=== PATIENT | male | born 1945 | race Caucasian/White ===

== ENCOUNTER 2016-10-20 07:35 | Inpatient (IN) | payer OTHER ==
[~2016-10-20] VITALS: Ht 175.3 cm; Wt 86.8 kg
[~2016-10-20 07:35] MED LIST: ALER-CAP25 M1 PO; AMLODIPINE BESYL5 MG PO; ASPIR-LOW81 MG PO; AUGMENTIN875 MG PO; BACTRIM,SEPT1 TABLET PO; CARVEDILOL12.5 MG PO; CEPHALEXIN500 MG PO; COZAAR100 MG PO; DELTASONE10 MG PO; LAMICTAL150 M1 PO; LAMICTAL150 MG PO; PHENOBARBITAL60 MG PO; PHENOBARBITAL64.8 MG PO; PRAVASTATIN SOD40 MG PO; Phenobarbital PO; SODIUM CHLORIDE1 G1 PO; Tylenol Regular Stre PO; UNABLEOBTAIN
[2016-10-20 08:44] LABS: HEMATOCRIT 36.8 % (38.0-50.0); MCH 31.5 PG (29.0-34.0); MCHC 35.1 G/DL (30.0-36.0); MEAN PLAT.VOLUME 8.5 uM^3 (9.0-12.4); PLATELET COUNT 260 K/uL (156-360); RBC DIS.WIDTH-CV 12.1 % (11.8-14.6); RBC DIS.WIDTH-SD 39.8 % (39-53); RED BLOOD COUNT 4.09 M/uL (4.00-5.50); WHITE BLOOD COUNT 7.2 K/uL (4.1-10.2)
[2016-10-20 08:52] LABS: CHLORIDE 91 mEq/L (99-109); POTASSIUM 4.9 mEq/L (3.7-5.4); SODIUM 128 mEq/L (136-147)
[2016-10-20 08:54] LABS: GLUCOSE 105 mg/dL (70-99)
[2016-10-20 08:55] LABS: ANION GAP 9 MEQ/L (2-14)
[2016-10-20 08:56] LABS: TOTAL BILIRUBIN 0.4 mg/dL (0.0-1.0)
[2016-10-20 08:57] LABS: ALKALINE PHOSPHATASE 173 IU/L (3-129)
[2016-10-20 08:58] LABS: GFR ESTIMATE (CALCULATED) > 59 mL/min/
[2016-10-20 08:59] LABS: UREA NITROGEN (BUN) 14 mg/dL (9-23)
[2016-10-20 09:09] LABS: PHENOBARBITAL 17.3 MCG/ML (15-40); SAMPLE HEMOLYSIS CHECK 0; SAMPLE ICTERIC CHECK 0; SAMPLE LIPEMIA CHECK 0
[2016-10-20 09:26] LABS: ADD MIUA? NO; BILIRUBIN NEGATIVE; BLOOD NEGATIVE; COLOR YELLOW ((YELLOW)); GLUCOSE (STRIP) NEGATIVE; KETONES NEGATIVE; LEUKOCYTES NEGATIVE; NITRITE NEGATIVE; PROTEIN (STRIP) NEGATIVE; SPECIFIC GRAVITY 1.015 (1.000-1.030); UCUL ADDED? NO
[2016-10-20 17:46] VITALS: BP 137/66
[2016-10-20 19:42] VITALS: BP 128/59
[2016-10-21 00:12] VITALS: BP 133/67
[2016-10-21 04:36] VITALS: BP 152/72
[2016-10-21 07:15] LABS: ANION GAP 8 MEQ/L (2-14); CHLORIDE 93 MEQ/L (99-109); GFR ESTIMATE (CALCULATED) > 59 mL/min/; GLUCOSE 102 mg/dL (70-99); POTASSIUM 4.4 MEQ/L (3.7-5.4); SAMPLE HEMOLYSIS CHECK 0; SAMPLE ICTERIC CHECK 0; SAMPLE LIPEMIA CHECK 0; SODIUM 126 MEQ/L (136-147); UREA NITROGEN (BUN) 12 mg/dL (9-23)
[2016-10-21 08:34] VITALS: BP 177/82
[2016-10-21 11:45] VITALS: BP 144/69
[2016-10-21 17:04] VITALS: BP 135/65
[2016-10-21 20:12] VITALS: BP 133/67
[2016-10-22 00:08] VITALS: BP 136/71
[2016-10-22 03:11] VITALS: BP 162/77
[2016-10-22 06:31] LABS: ANION GAP 10 MEQ/L (2-14); CHLORIDE 94 MEQ/L (99-109); GFR ESTIMATE (CALCULATED) > 59 mL/min/; GLUCOSE 95 mg/dL (70-99); POTASSIUM 4.5 MEQ/L (3.7-5.4); SAMPLE HEMOLYSIS CHECK 0; SAMPLE ICTERIC CHECK 0; SAMPLE LIPEMIA CHECK 0; SODIUM 128 MEQ/L (136-147); UREA NITROGEN (BUN) 11 mg/dL (9-23)
[2016-10-22 07:21] VITALS: BP 184/86
[2016-10-22 08:39] LABS: INTER. NORMALIZED RATIO 1.1; PROTHROMBIN TIME 12.6 SEC (10.2-12.9)
[2016-10-22 10:56] VITALS: BP 132/62
[2016-10-22 15:16] VITALS: BP 147/65
[2016-10-22 18:52] VITALS: BP 131/61
[2016-10-23] VITALS (9 sets, daily range): BP systolic 82–174; BP diastolic 50–79
[2016-10-23 08:24] LABS: ANION GAP 8 MEQ/L (2-14); CHLORIDE 92 MEQ/L (99-109); GFR ESTIMATE (CALCULATED) > 59 mL/min/; GLUCOSE 93 mg/dL (70-99); POTASSIUM 4.4 MEQ/L (3.7-5.4); SAMPLE HEMOLYSIS CHECK 0; SAMPLE ICTERIC CHECK 0; SAMPLE LIPEMIA CHECK 0; SODIUM 126 MEQ/L (136-147); UREA NITROGEN (BUN) 10 mg/dL (9-23)
[2016-10-23 16:46] LABS: ANION GAP 7 MEQ/L (2-14); CHLORIDE 90 MEQ/L (99-109); GFR ESTIMATE (CALCULATED) > 59 mL/min/; GLUCOSE 92 mg/dL (70-99); POTASSIUM 4.2 MEQ/L (3.7-5.4); SAMPLE HEMOLYSIS CHECK 0; SAMPLE ICTERIC CHECK 0; SAMPLE LIPEMIA CHECK 0; SODIUM 124 MEQ/L (136-147); UREA NITROGEN (BUN) 14 mg/dL (9-23)
[2016-10-24 04:33] VITALS: BP 140/70
[2016-10-24 06:30] LABS: HEMATOCRIT 33.6 % (38.0-50.0); MCH 30.3 PG (29.0-34.0); MCHC 33.3 G/DL (30.0-36.0); MCV 90.8 FL (86-99); MEAN PLAT.VOLUME 8.8 uM^3 (9.0-12.4); PLATELET COUNT 238 K/uL (156-360); RBC DIS.WIDTH-CV 12.2 % (11.8-14.6); RBC DIS.WIDTH-SD 40.9 % (39-53); WHITE BLOOD COUNT 7.1 K/uL (4.1-10.2)
[2016-10-24 06:59] LABS: ANION GAP 6 MEQ/L (2-14); CHLORIDE 92 MEQ/L (99-109); GFR ESTIMATE (CALCULATED) > 59 mL/min/; GLUCOSE 98 mg/dL (70-99); POTASSIUM 4.8 MEQ/L (3.7-5.4); SAMPLE HEMOLYSIS CHECK 0; SAMPLE ICTERIC CHECK 0; SAMPLE LIPEMIA CHECK 0; SODIUM 126 MEQ/L (136-147); UREA NITROGEN (BUN) 15 mg/dL (9-23)
[2016-10-24 07:54] VITALS: BP 149/72
[2016-10-24 11:09] VITALS: BP 112/56
[2016-10-24 16:01] VITALS: BP 132/63
[2016-10-24 19:39] VITALS: BP 136/63
[2016-10-24 23:20] VITALS: BP 149/70
[2016-10-25 03:57] VITALS: BP 135/71
[2016-10-25 07:05] VITALS: BP 174/85
[2016-10-25 07:08] LABS: ANION GAP 6 MEQ/L (2-14); CHLORIDE 92 MEQ/L (99-109); GFR ESTIMATE (CALCULATED) > 59 mL/min/; GLUCOSE 93 mg/dL (70-99); POTASSIUM 4.9 MEQ/L (3.7-5.4); SAMPLE HEMOLYSIS CHECK 0; SAMPLE ICTERIC CHECK 0; SAMPLE LIPEMIA CHECK 0; SODIUM 126 MEQ/L (136-147); UREA NITROGEN (BUN) 16 mg/dL (9-23)
[2016-10-25 11:14] VITALS: BP 95/52
[2016-10-25 15:08] VITALS: BP 105/52
[2016-10-25 16:29] LABS: ANION GAP 8 MEQ/L (2-14); CHLORIDE 91 MEQ/L (99-109); GFR ESTIMATE (CALCULATED) > 59 mL/min/; GLUCOSE 99 mg/dL (70-99); POTASSIUM 4.5 MEQ/L (3.7-5.4); SAMPLE HEMOLYSIS CHECK 0; SAMPLE ICTERIC CHECK 0; SAMPLE LIPEMIA CHECK 0; SODIUM 126 MEQ/L (136-147); UREA NITROGEN (BUN) 21 mg/dL (9-23)
[2016-10-25 19:18] VITALS: BP 135/60
[2016-10-25 22:09] LABS: CHLORIDE 95 mEq/L (99-109); POTASSIUM 4.4 mEq/L (3.7-5.4); SODIUM 130 mEq/L (136-147)
[2016-10-25 22:11] LABS: GLUCOSE 103 mg/dL (70-99)
[2016-10-25 22:12] LABS: ANION GAP 8 MEQ/L (2-14)
[2016-10-25 22:15] LABS: GFR ESTIMATE (CALCULATED) > 59 mL/min/
[2016-10-25 22:16] LABS: UREA NITROGEN (BUN) 21 mg/dL (9-23)
[2016-10-25 23:47] VITALS: BP 124/60
[2016-10-26] VITALS (7 sets, daily range): BP systolic 91–175; BP diastolic 52–78
[2016-10-26 06:30] LABS: ANION GAP 6 MEQ/L (2-14); CHLORIDE 96 MEQ/L (99-109); GFR ESTIMATE (CALCULATED) > 59 mL/min/; GLUCOSE 100 mg/dL (70-99); POTASSIUM 4.6 MEQ/L (3.7-5.4); SAMPLE HEMOLYSIS CHECK 0; SAMPLE ICTERIC CHECK 0; SAMPLE LIPEMIA CHECK 0; SODIUM 130 MEQ/L (136-147); UREA NITROGEN (BUN) 19 mg/dL (9-23)
[2016-10-26] MEDS ORDERED: FUROSEMIDE20 MG PO (10:26)
[2016-10-26] MEDS ORDERED: SODIUM CHLORIDE1 G1 PO (10:26)
[2016-10-27 04:38] VITALS: BP 163/77
[2016-10-27 07:11] LABS: GLUCOSE 95 mg/dL (70-99)
[2016-10-27 07:12] LABS: ANION GAP 6 MEQ/L (2-14); CHLORIDE 94 MEQ/L (99-109); GFR ESTIMATE (CALCULATED) > 59 mL/min/; POTASSIUM 4.2 MEQ/L (3.7-5.4); SAMPLE HEMOLYSIS CHECK 0; SAMPLE ICTERIC CHECK 0; SAMPLE LIPEMIA CHECK 0; SODIUM 129 MEQ/L (136-147); UREA NITROGEN (BUN) 18 mg/dL (9-23)
[2016-10-27 07:52] VITALS: BP 168/79
[2016-10-27] MEDS ORDERED: LASIX20 MG PO (10:54)
== END 2016-10-27 11:28 | DRG 643 ==
LOC: EME 07:35 → ENRESERV 12:54 → 3EAST 12:58 → EDOF 12:58 → ENRESERV 15:07 → 3EAST 17:31
PROVIDERS: Emergency Medicine; Internal Medicine; Physician Assistant
DX: E22.2 Syndrome of inappropriate secretion of antidiuretic hormone (principal); G93.40 Encephalopathy, unspecified; E86.0 Dehydration; I10 Essential (primary) hypertension; G40.909 Epilepsy, unspecified, not intractable, without status epilepticus; I73.9 Peripheral vascular disease, unspecified; M19.90 Unspecified osteoarthritis, unspecified site; G43.909 Migraine, unspecified, not intractable, without status migrainosus; Z87.440 Personal history of urinary (tract) infections; Z79.82 Long term (current) use of aspirin; Z79.899 Other long term (current) drug therapy; Z86.73 Personal history of transient ischemic attack (TIA), and cerebral infarction without residual deficits; Z80.0 Family history of malignant neoplasm of digestive organs
CPT/HCPCS: 70450; 70551; 71010; 76705; 80048; 80048 91; 80053; 80175 90; 80184; 81003; 82140; 82607; 82746; 83930; 83935; 84300; 85027; 85610; 85730; 95819; 96125 GN; 97530 GO; 97530 GP; 99281; 99285; J1650; J7030; J7040

== ENCOUNTER 2016-10-26 08:49 | Inpatient (IN) | payer OTHER ==
[~2016-10-26] VITALS: Ht 177.8 cm; Wt 84.9 kg
[2016-10-26] MEDS ORDERED: FUROSEMIDE20 MG PO (10:26)
[2016-10-26] MEDS ORDERED: SODIUM CHLORIDE1 G1 PO (10:26)
[2016-10-27] MEDS ORDERED: LASIX20 MG PO (10:54)
[2016-10-27 11:35] VITALS: BP 127/60
[2016-10-27 15:35] VITALS: BP 171/78
[2016-10-27 18:33] VITALS: BP 142/65
[2016-10-28 04:45] VITALS: BP 153/75
[2016-10-28 04:48] VITALS: BP 122/67
[2016-10-28 06:54] LABS: HEMATOCRIT 31.9 % (38.0-50.0); MCH 31.9 PG (29.0-34.0); MCHC 34.2 G/DL (30.0-36.0); MCV 93.3 FL (86-99); MEAN PLAT.VOLUME 8.6 uM^3 (9.0-12.4); PLATELET COUNT 234 K/uL (156-360); RBC DIS.WIDTH-CV 12.5 % (11.8-14.6); RBC DIS.WIDTH-SD 42.8 % (39-53); RED BLOOD COUNT 3.42 M/uL (4.00-5.50); WHITE BLOOD COUNT 7.9 K/uL (4.1-10.2)
[2016-10-28 07:16] LABS: ALKALINE PHOSPHATASE 114 IU/L (3-129); ANION GAP 5 MEQ/L (2-14); CHLORIDE 95 MEQ/L (99-109); GFR ESTIMATE (CALCULATED) > 59 mL/min/; GLUCOSE 96 mg/dL (70-99); POTASSIUM 4.7 MEQ/L (3.7-5.4); SAMPLE HEMOLYSIS CHECK 0; SAMPLE ICTERIC CHECK 0; SAMPLE LIPEMIA CHECK 0; SODIUM 130 MEQ/L (136-147); TOTAL BILIRUBIN 0.3 MG/DL (0.0-1.0); UREA NITROGEN (BUN) 22 mg/dL (9-23)
[2016-10-28 15:21] VITALS: BP 119/573
[2016-10-29 04:56] VITALS: BP 120/60
[2016-10-29 15:14] VITALS: BP 106/56
[2016-10-30 05:38] VITALS: BP 162/88
[2016-10-30 07:21] LABS: ANION GAP 8 MEQ/L (2-14); CHLORIDE 94 MEQ/L (99-109); GFR ESTIMATE (CALCULATED) > 59 mL/min/; GLUCOSE 90 mg/dL (70-99); POTASSIUM 4.6 MEQ/L (3.7-5.4); SAMPLE HEMOLYSIS CHECK 0; SAMPLE ICTERIC CHECK 0; SAMPLE LIPEMIA CHECK 0; SODIUM 129 MEQ/L (136-147); UREA NITROGEN (BUN) 17 mg/dL (9-23)
[2016-10-30 15:07] VITALS: BP 116/56
[2016-10-31 04:58] VITALS: BP 119/67
[2016-10-31 15:00] VITALS: BP 130/60
[2016-11-01 06:30] VITALS: BP 142/63
[2016-11-01 15:15] VITALS: BP 108/53
[2016-11-02 05:57] VITALS: BP 137/63
[2016-11-02 15:34] VITALS: BP 123/61
[2016-11-03 05:37] VITALS: BP 151/78
[2016-11-03 15:15] VITALS: BP 154/65
[2016-11-04 05:06] VITALS: BP 142/70
[2016-11-04 06:35] LABS: ANION GAP 4 MEQ/L (2-14); CHLORIDE 94 MEQ/L (99-109); GFR ESTIMATE (CALCULATED) > 59 mL/min/; GLUCOSE 94 mg/dL (70-99); POTASSIUM 4.4 MEQ/L (3.7-5.4); SAMPLE HEMOLYSIS CHECK 0; SAMPLE ICTERIC CHECK 0; SAMPLE LIPEMIA CHECK 0; SODIUM 128 MEQ/L (136-147); UREA NITROGEN (BUN) 17 mg/dL (9-23)
[2016-11-04 08:35] LABS: URIC ACID 3.9 mg/dL (3.1-9.2)
[2016-11-04 15:00] VITALS: BP 117/58
[2016-11-05 05:11] VITALS: BP 169/77
[2016-11-05 05:49] LABS: HEMATOCRIT 32.1 % (38.0-50.0); MCH 31.7 PG (29.0-34.0); MCHC 34.6 G/DL (30.0-36.0); MCV 91.7 FL (86-99); MEAN PLAT.VOLUME 8.6 uM^3 (9.0-12.4); PLATELET COUNT 244 K/uL (156-360); RBC DIS.WIDTH-CV 12.4 % (11.8-14.6); RBC DIS.WIDTH-SD 41.1 % (39-53); WHITE BLOOD COUNT 6.1 K/uL (4.1-10.2)
[2016-11-05 06:21] LABS: ALKALINE PHOSPHATASE 129 IU/L (3-129); ANION GAP 6 MEQ/L (2-14); CHLORIDE 95 MEQ/L (99-109); GFR ESTIMATE (CALCULATED) > 59 mL/min/; GLUCOSE 95 mg/dL (70-99); POTASSIUM 4.6 MEQ/L (3.7-5.4); SAMPLE HEMOLYSIS CHECK 0; SAMPLE ICTERIC CHECK 0; SAMPLE LIPEMIA CHECK 0; SODIUM 131 MEQ/L (136-147); TOTAL BILIRUBIN 0.3 MG/DL (0.0-1.0); UREA NITROGEN (BUN) 16 mg/dL (9-23)
[2016-11-05 16:03] VITALS: BP 113/59
[2016-11-05] MEDS ORDERED: SODIUM CHLORIDE1 G1 PO (19:37)
[2016-11-05] MEDS ORDERED: CEPHALEXIN500 MG PO (19:37)
[2016-11-05] MEDS ORDERED: LOSARTAN POTASS50 MG PO (19:37)
[2016-11-05] MEDS ORDERED: MUPIROCIN15 GM TP (19:37)
[2016-11-06 05:27] VITALS: BP 127/62
[2016-11-06 08:49] VITALS: BP 108/59
== END 2016-11-06 10:14 | DRG 71 ==
LOC: 3WEST 08:49 → ENPENDDIS 11-06 → 3WEST 11-06 10:14
PROVIDERS: Internal Medicine; Physical Medicine & Rehabilitation Pain Medicine
PROC: F07M0ZZ Range of Motion and Joint Mobility Treatment of Musculoskeletal System - Whole Body (ICD-10-PCS; principal; 2016-10-27)
DX: G93.40 Encephalopathy, unspecified (principal); R26.9 Unspecified abnormalities of gait and mobility; E22.2 Syndrome of inappropriate secretion of antidiuretic hormone; L02.13 Carbuncle of neck; I95.9 Hypotension, unspecified; I10 Essential (primary) hypertension; E78.5 Hyperlipidemia, unspecified; G40.909 Epilepsy, unspecified, not intractable, without status epilepticus; Z60.2 Problems related to living alone; Z80.0 Family history of malignant neoplasm of digestive organs; Z80.1 Family history of malignant neoplasm of trachea, bronchus and lung; Z82.3 Family history of stroke; Z88.0 Allergy status to penicillin
CPT/HCPCS: 80048; 80053; 83935; 84300; 84550; 85027; 97110 GO; 97530 GP; J1650